=== PATIENT | female | born 1975 | race Asian ===

== ENCOUNTER → 2018-07-16 | Outpatient (CLI) | payer OTHER | LOC: FIMAGING 11:30 | PROVIDERS: ATTEND Advanced Practice Midwife | DX: O09.522 Supervision of elderly multigravida, second trimester (principal); Z3A.21 21 weeks gestation of pregnancy; O34.12 Maternal care for benign tumor of corpus uteri, second trimester ==

== ENCOUNTER → 2018-08-13 | Outpatient (CLI) | payer OTHER | LOC: FIMAGING 12:39 | PROVIDERS: ATTEND Advanced Practice Midwife | DX: O09.512 Supervision of elderly primigravida, second trimester (principal); O34.12 Maternal care for benign tumor of corpus uteri, second trimester; Z3A.24 24 weeks gestation of pregnancy ==

== ENCOUNTER → 2018-09-23 | Outpatient (CLI) | payer OTHER | LOC: FIMAGING 11:50 | PROVIDERS: ATTEND Advanced Practice Midwife | DX: O09.523 Supervision of elderly multigravida, third trimester (principal); Z3A.30 30 weeks gestation of pregnancy; O34.13 Maternal care for benign tumor of corpus uteri, third trimester; D25.9 Leiomyoma of uterus, unspecified ==

== ENCOUNTER 2018-11-28 13:34 | Inpatient (IN) | payer OTHER | END 2018-11-30 12:34 | disposition home or self-care (01) | LOC: FLD 13:34 → FOB 11-29 01:14 ==